=== PATIENT | female | born 1995 | race Caucasian/White ===

== ENCOUNTER 2021-01-10 20:19 | Emergency (ER) | payer OTHER ==
[~2021-01-10] VITALS: Ht 177.8 cm; Wt 97.7 kg
[2021-01-10] MEDS ORDERED: CRUTCHES MC (22:27)
[2021-01-10 22:46] VITALS: BP 128/64; PULSE 70; TEMP 97.4
== END 2021-01-10 22:47 | disposition home or self-care (01) ==
LOC: COL.ER 20:19
DX: S93.401A Sprain of unspecified ligament of right ankle, initial encounter (principal); X50.1XXA Overexertion from prolonged static or awkward postures, initial encounter